=== PATIENT | male | born 1955 | race Caucasian/White ===

== ENCOUNTER 2025-04-29 06:16 | Day surgery (SDC) | payer MEDICARE, OTHER, SELFPAY | END 2025-04-29 11:59 | disposition home or self-care (01) | LOC: GI 06:16 | PROVIDERS: ATTENDING PHYSICIAN Specialist; FAMILY PHYSICIAN Family Medicine | DX: Z12.11 Encounter for screening for malignant neoplasm of colon (principal); K57.30 Diverticulosis of large intestine without perforation or abscess without bleeding; K64.8 Other hemorrhoids; D12.0 Benign neoplasm of cecum | CPT/HCPCS: 45380; 88305 ==

== ENCOUNTER → 2025-06-29 08:02 | Outpatient (REF) | payer MEDICARE, OTHER, SELFPAY | LOC: RCS 08:02 | PROVIDERS: ATTENDING PHYSICIAN Internal Medicine Cardiovascular Disease; FAMILY PHYSICIAN Family Medicine | DX: R55 Syncope and collapse (principal) | CPT/HCPCS: 93306 ==